=== PATIENT | male | born 1970 | race Caucasian/White ===

== ENCOUNTER → 2020-09-20 | Outpatient (CLI) | payer OTHER | LOC: CT 07:33 | DX: Z01.818 Encounter for other preprocedural examination (principal); R60.0 Localized edema; I87.2 Venous insufficiency (chronic) (peripheral); R93.5 Abnormal findings on diagnostic imaging of other abdominal regions, including retroperitoneum | CPT/HCPCS: ECHO; 93306; 93970; Q9967 ==

== ENCOUNTER 2022-04-16 09:59 | Emergency (ER) | payer OTHER ==
[2022-04-16 11:08] LABS: HEMOGLOBIN 13.7 gm/dl (14.0-17.5); RED BLOOD COUNT 4.9 M/UL (4.20-5.50)
[2022-04-16 11:24] LABS: BUN/CREATININE RATIO 12 (0-10)
[2022-04-16] MEDS ORDERED: CEPHALEXIN500 M1 PO (14:08)
[2022-04-16] MEDS ORDERED: IBUPROFEN600 MG PO (14:08)
[2022-04-16] MEDS ORDERED: BACTRIM DS TAB1 EACH PO (14:08)
== END 2022-04-16 14:25 | disposition home or self-care (01) ==
LOC: ER1 09:59
PROVIDERS: Physician Assistant Medical
DX: L03.011 Cellulitis of right finger (principal); E11.9 Type 2 diabetes mellitus without complications; I10 Essential (primary) hypertension; F17.210 Nicotine dependence, cigarettes, uncomplicated; Z89.421 Acquired absence of other right toe(s); Z79.4 Long term (current) use of insulin; Z79.899 Other long term (current) drug therapy
CPT/HCPCS: 73130; 80053; 85025; 85652; 86140; 99283